=== PATIENT | female | born 1985 | race Caucasian/White ===

== ENCOUNTER 2017-05-01 16:26 | Emergency (ER) | payer OTHER ==
[2017-05-01] MEDS ORDERED: METOCLOPRAMIDE 5 MG/ML 2 ML VIAL IVP STA (18:28)
[2017-05-01] MEDS ORDERED: KETOROLAC 30 MG/ML 1 ML VIAL IVP STA (18:28)
[2017-05-01] MEDS ORDERED: SODIUM CHLORIDE 0.9% 500 ML IV STA (18:28)
--- NOTE | 2017-05-01 19:36 | ED ---
Headache HPI - General Chief Complaint: Headache Stated Complaint: Blurred Vision, numbess in hands, SOB Time Seen by Provider: 05/01/17 17:56 Mode of arrival: ambulatory Limitations: no limitations - History of Present Illness Initial Comments: 31-year-old female presented for evaluation of gradual onset headache that started yesterday. She states that she occasionally has headaches that have been somewhat similar to this however she has not required presentation to the ED previously. She tried ibuprofen without any improvement in her symptoms. She states that it is not constant and is intermittently present. There is associated mild blurred vision which waxes and wanes with her headache as well. Denies fevers, chills, rashes, neck pain, ataxia, dizziness, chest pain, shortness of breath. - Related Data Home Medications Medication Instructions Recorded Confirmed Ibuprofen [Motrin] 800 mg PO Q6HR PRN 05/01/17 05/01/17 Previous Rx's Medication Instructions Recorded Ibuprofen [Motrin] 800 mg PO Q6HR #30 tab 05/01/17 Allergies Allergy/AdvReac Type Severity Reaction Status Date / Time amoxicillin [Amoxicillin] Allergy Mild Rash/Hives Verified 05/01/17 18:15 Penicillins Allergy Mild Rash/Hives Verified 05/01/17 18:15 Sulfa (Sulfonamide AdvReac Mild Nausea & Verified 05/01/17 18:15 Antibiotics) Vomiting Review of Systems ROS Statement: Those systems with pertinent positive or pertinent negative responses have been documented in the HPI. ROS Other: All systems not noted in ROS Statement are negative. Constitutional: Denies: fever, chills Eyes: Denies: eye pain, vision change ENT: Denies: ear pain, throat pain Respiratory: Denies: cough, dyspnea, wheezes Cardiovascular: Denies: chest pain, palpitations Endocrine: Denies: fatigue, polydipsia, polyuria Gastrointestinal: Reports: nausea. Denies: abdominal pain, vomiting Genitourinary: Denies: urgency, dysuria Musculoskeletal: Denies: back pain, arthralgia, myalgia Skin: Denies: rash, lesions Neurological: Reports: headache, numbness (Tingling in the fingers). Denies: weakness Psychiatric: Denies: anxiety, depression Hematological/Lymphatic: Denies: easy bleeding, easy bruising Past Medical History Past Medical History: No Reported History History of Any Multi-Drug Resistant Organisms: None Reported Past Surgical History: No Surgical Hx Reported Past Psychological History: No Psychological Hx Reported Smoking Status: Never smoker Past Alcohol Use History: None Reported Past Drug Use History: None Reported General Exam Limitations: no limitations General appearance: alert, in no apparent distress Head exam: Present: atraumatic, normocephalic, normal inspection Eye exam: Present: normal appearance, PERRL, EOMI. Absent: scleral icterus, conjunctival injection, periorbital swelling ENT exam: Present: normal exam, mucous membranes moist Neck exam: Present: normal inspection. Absent: tenderness, meningismus, lymphadenopathy Respiratory exam: Present: normal lung sounds bilaterally. Absent: respiratory distress, wheezes, rales, rhonchi, stridor Cardiovascular Exam: Present: regular rate, normal rhythm, normal heart sounds. Absent: systolic murmur, diastolic murmur, rubs, gallop, clicks GI/Abdominal exam: Present: soft, normal bowel sounds. Absent: distended, tenderness, guarding, rebound, rigid Rectal exam: Present: deferred Extremities exam: Present: normal inspection, full ROM, normal capillary refill. Absent: tenderness, pedal edema, joint swelling, calf tenderness Back exam: Present: normal inspection Neurological exam: Present: alert, oriented X3, CN II-XII intact Psychiatric exam: Present: normal affect, normal mood Skin exam: Present: warm, dry, intact, normal color. Absent: rash Course Vital Signs 05/01/17 05/01/17 05/01/17 17:02 18:58 19:47 Temperature 99.2 F 97.4 F L Pulse Rate 85 73 65 Respiratory 18 16 18 Rate Blood Pressure 140/90 138/93 115/81 O2 Sat by Pulse 100 100 99 Oximetry Medical Decision Making - Medical Decision Making 31-year-old female presenting for evaluation of headache since yesterday. She states that she does have a history of headaches however this is worse than usual. Onset was gradual and she denies maximum intensity at onset. There is some associated visual changes however these go away with a headache which is described as intermittent. On physical examination green 102 through 12 are intact without focal neurologic deficit and she has normal gait and station. Presentation is not consistent with meningitis as there is no nuchal rigidity, fevers, light sensitivity, or other significant findings. Pseudotumor is considered and patient was offered a lumbar puncture however this time she refused. She was informed of potential complications of untreated /undiagnosed pseudotumor cerebri and she acknowledged an understanding and stated at this time she would like to forego a lumbar puncture and she is very afraid of needles. Patient was given headache cocktail and on reevaluation had marketed improvement in her symptoms. She stated that she would like to be discharged at this time and that she would follow-up with her primary care physician. She is further advised to return to this department if her symptoms should worsen or persist. The patient acknowledged an understanding of all information provided and agreed with this plan of care. - Lab Data Lab Results 05/01/17 Range/Units 18:32 Urine HCG, Qual Not Detected (Not Detectd) Disposition Clinical Impression: Headache Disposition: HOME SELF-CARE Condition: Stable Instructions: Acute Headache (ED) Additional Instructions: Please use medication as discussed. Please follow up with family doctor if symptoms have not improved over the next two days. Please return to the emergency room if your symptoms increase or worsen or for any other concerns. Prescriptions: Ibuprofen [Motrin] 800 mg PO Q6HR #30 tab Referrals: None,Stated [Primary Care Provider] - 1-2 days Time of Disposition: 19:35
[2017-05-01 19:48] VITALS: BP 115/81; PULSE 65; RESP 18; TEMP 97.4
== END 2017-05-01 19:49 | disposition home or self-care (01) ==
LOC: EC 16:26
DX: R51 Headache (principal); H53.8 Other visual disturbances; Z88.0 Allergy status to penicillin; Z88.2 Allergy status to sulfonamides
CPT/HCPCS: 81025; 99284; 96374; 96375; 96361; J2765; J1885

== ENCOUNTER → 2022-06-18 | Outpatient (CLI) | payer BC ==
--- NOTE | 2022-06-19 17:27 | MM ---
Reason for Exam: Screening (asymptomatic). Baseline mammogram. Patient History: Menarche at age 15. First Full-Term at age 23. Patient has history of breast feeding. Last menstrual period: 05/28/2022 Risk Values: Cathy 5 year model risk: 0.3%. NCI Lifetime model risk: 8.4%. Prior Study Comparison: Patient's first Mammogram. Tissue Density: There are scattered fibroglandular densities. Findings: Analyzed By CAD. Pattern appears symmetrical. No suspicious groups of microcalcifications, spiculated or lobular masses, architectural distortion or other secondary signs of malignancy are mammographically apparent. Overall Assessment: Benign, BI-RAD 2 Management: Screening Mammogram of both breasts in 1 year. A negative mammogram report should not preclude additional follow up of suspicious palpable abnormalities. Patient should continue monthly self breast exam. A clinical breast exam by your physician is recommended on an annual basis and results should be correlated with mammographic findings. Electronically signed and approved by: Flo Montana D.O. Radiologis
== END | disposition home or self-care (01) ==
LOC: RADMAMWWP 09:42
PROVIDERS: ATTEND Family Medicine
DX: Z12.31 Encounter for screening mammogram for malignant neoplasm of breast (principal)
CPT/HCPCS: 77063; 77067